=== PATIENT | female | born 1980 | race Caucasian/White ===

== ENCOUNTER 2017-01-02 07:04 | Outpatient (CLI) | payer BC | END 2017-01-02 08:47 | disposition home or self-care (01) | LOC: TRG 07:04 | PROVIDERS: ATTEND Obstetrics & Gynecology | DX: O47.1 False labor at or after 37 completed weeks of gestation (principal); Z3A.39 39 weeks gestation of pregnancy | CPT/HCPCS: 59025 ==

== ENCOUNTER 2017-01-05 08:28 | Outpatient (CLI) | payer BC ==
[2017-01-05 12:22] VITALS: BP 111/59
--- NOTE | 2017-01-05 12:30 | Ultrasound Report ---
ULTRASOUND BIOPHYSICAL PROFILE: History: Nonreactive stress test Technique: Transabdominal ultrasound with Doppler interrogation. 2 - breathing movements 2 - movements 2 - posture and tone 2 - Qualitative amniotic fluid volume 8 - TOTAL SCORE OF POSSIBLE 8 Heart Rate (bpm) 148
--- NOTE | 2017-01-05 12:31 | Ultrasound Report ---
ULTRASOUND OB LIMITED History: Nonreactive stress test Technique: Transabdominal ultrasound with Doppler interrogation. Gestation: Single Position: Cephalic Amniotic Fluid: Normal HIRAL = 13.6 cm Heart Rate: 148 BPM
== END 2017-01-05 12:55 | disposition home or self-care (01) ==
LOC: TRG 08:28
PROVIDERS: ATTEND Obstetrics & Gynecology
DX: O09.523 Supervision of elderly multigravida, third trimester (principal); Z3A.39 39 weeks gestation of pregnancy
CPT/HCPCS: 59025; 76815; 76819

== ENCOUNTER 2017-01-06 13:26 | Inpatient (IN) | payer BC ==
[2017-01-06] MEDS ORDERED: XYLOCAINE 2% INFILTRATI ONE (13:59)
[2017-01-06] MEDS ORDERED: MINERAL OIL PO PRN (13:59)
[2017-01-06] MEDS ORDERED: BRETHINE SUB-Q PRN (13:59)
[2017-01-06] MEDS ORDERED: ePHEDrine SULFATE IV PRN ×2 (13:59→18:11)
[2017-01-06] MEDS ORDERED: SUBLIMAZE IV PRN (13:59)
[2017-01-06] MEDS ORDERED: PITOCin/NS 20 UNIT/1000ML DRIP 20 UNITS/1,000 ML BAG IV SCH (14:00)
--- NOTE | 2017-01-06 14:40 | History and Physical Report ---
History of Present Illness Date of examination: 01/06/17 (pt presents with SROM/meconium; ctx) Date of admission: 01/06/17 13:26 History of present illness: Past History : 2 Term Births: 0 Premature Births: 0 Living Children: 0 Para: 0 Mult. Births: 0 Prev : 0 Prev. attempt? 0 Aborta: 1 Elect. Ab: 1 Spont. 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 of genital herpes: no Partner hx. of genital herpes: no Genetic History Congenital Heart Defect: Mom: yes Comments: nephew Eliana Disease: Mom: no Thalassemia Mom: no Neural Tube Defect Mom: no Down's Syndrome Mom: no Roland-Sachs Mom: no Sickle Cell Disease/Trait Mom: no Hemophilia Mom: no Muscular Dystrophy Mom: no Cystic Fibrosis Mom: no [place] Chorea Mom: no Mental Retardation Mom: no Fragile X Mom: no Other Genetic/Chromosomal Disorder Mom: no Child w/other defect Mom: no Enviromental Exposures Xray Exposure: no Medication, drug, or alcohol use since LMP: no Chemical/Other Exposure: no Exposure to Cat Liter: no Hx of Parvovirus (Fifth Disease): no Active Medications: None Current Allergies (reviewed today): No known allergies Laboratory Results Routine Urinalysis Leukocytes: negative Nitrite: negative Urobilinogen: negative Protein: Negative Blood: negative Ketone: negative Bilirubin: negative Glucose: Negative Urine HCG: positive Review of Systems General Complains of fatigue. Denies fever, chills, sweats, anorexia, weakness, malaise, weight loss and sleep disorder. Complains of pelvic pain. Denies vaginal discharge, incontinence, dysuria, hematuria, urinary frequency, amenorrhea, menorrhagia, abnormal vaginal bleeding, genital sores, decreased libido, painful periods, painful sex, urinary urgency, hot flashes, vaginal dryness, vaginal itching and vaginal odor. CV Denies chest pains, palpitations, syncope, dyspnea on exertion, orthopnea, PND and peripheral edema. Resp Denies cough, dyspnea at rest, excessive sputum, hemoptysis, wheezing and pleurisy. GI Complains of nausea. Denies vomiting, diarrhea, constipation, change in bowel habits, abdominal pain, melena, hematochezia, jaundice, gas/bloating, indigestion/heartburn, dysphagia and odynophagia. Breast Complains of breast pain. Denies left breast lump, right breast lump, nipple discharge, bloody discharge from nipple, abnormal mammogram and breast enlargement. Psych Denies depression, anxiety, irritability and mood swings. PHYSICAL EXAM HEENT: normocephalic, no lesions or deformities Neck/Thyroid: supple, thyroid normal Skin no significant abnormal lesions or rashes Chest: respiratory effort normal, clear to auscultation Breasts: skin/areolae normal, no masses, no nipple discharge, no erythema/warmth /tenderness, and axillae normal. 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 Vulva/Vagina: No lesions, normal BUS, normal rugae Cervix: No lesions; no cervical motion tenderness Uterus: unable to palapte due to obesity Adnexae: unable to palapte due to obesity Rectovaginal: exam defered Past History - Obstetrical History Expected Date of Delivery: 01/06/17 Actual Gestation: 40 Week(s) 0 Day(s) : 2 Para: 0 Induced : 1 Number of Living Children: 0 Medications and Allergies Allergies Allergy/AdvReac Type Severity Reaction Status Date / Time No Known Allergies Allergy Verified 01/05/17 10:15 Home Medications Medication Instructions Recorded Confirmed Last Taken Type No Known Home Medications [No 01/05/17 01/05/17 Unknown History Reported Home Medications] Active Meds: Active Medications Fentanyl (Sublimaze) 100 mcg IV Q2H PRN PRN Reason: Labor Pain Lactated Ringer's (Lactated Ringers) 1,000 mls @ 125 mls/hr IV DIRECT SHERIE Oxytocin/Sodium Chloride (Pitocin/Ns 20 Unit/1000ml Drip) 20 units in 1,000 mls @ 125 mls/hr IV DIRECT SHERIE Oxytocin/Sodium Chloride (Pitocin/Ns 30 Unit/500ml) 30 units in 500 mls @ 4 mls /hr IV TITR SHERIE PRN Reason: Protocol Mineral Oil (Mineral Oil) 30 ml PO QHS PRN PRN Reason: Constipation - Vital Signs Vital signs: Vital Signs Pulse Pulse Ox 91 H 98 01/06/17 14:16 01/06/17 14:16 Temp Pulse Resp BP Pulse Ox 91 H 99 01/06/17 14:31 01/06/17 14:31 - Physical Exam Breasts: Positive: deferred Cardiovascular: Regular rate, Normal S1, Normal S2 Lungs: Positive: Normal air movement Abdomen: Positive: normal appearance, soft, normal bowel sounds. Negative: distention, tenderness Vulva: both: normal Vagina: Positive: normal moisture. Negative: discharge Cervix: Negative: lesion, discharge Uterus: Positive: normal size, normal contour Adnexa: both: normal Anus/Rectum: Positive: normal perianal skin, heme negative. Negative: rectal mass, hemorrhoids Extremities: Positive: edema Deep Tendon Reflex Grade: Normal +2 - Obstetrical FHR: category 1 Uterine Contraction Monitor Mode: External Cervical Dilatation: 1 (thin meconium stained fluid ) Cervical Effacement Percentage: 30 station: -3 Uterine Contraction Pattern: Irregular Uterine Tone Measurement Phase: Resting Uterine Contraction Intensity: Mild Results All other labs normal. Laboratory Data-Patient Name: [facility] Test Date Result Blood Type 06/17/2016 O Rh 06/17/2016 Positive Antibody Screen negative Rubella 06/17/2016 Serology (RPR) 06/17/2016 negative HBsAg 06/17/2016 Negative Hemoglobin 10/13/2016 10.9 Hematocrit 10/13/2016 34.9 Platelets 06/17/2016 276 [id number] Chlamydia DNA GC DNA/Culture Urine Culture 06/17/2016 Final report Group B Strep cult negative PAP 05/10/2016 Normal, Satisfactory HIV 06/17/2016 AFP/Quad Screen Glucola Test 3hr GTT (Fasting) 1 hr 2 hr 3 hr [facility]-Patient Name:[facility] Test Date Result Varicella Ab Sickle Cell 06/17/2016 Negative PPD Fibronectin Cystic Fibrosis Parvovirus TSH Free T4 Hepatitis C ALT AST Uric Acid Creatinine 24 hr Urine Protein JOSE Assessment and Plan 36yo @ 40 weeks with SROM while enroute to hospital. Thin meconium noted @ time of exam. GBS negative. Orders in EMR. NICU notified of meconium.
[2017-01-06 15:03] LABS: Hematocrit 35.2 % (30.3-42.9); Hemoglobin 11.1 gm/dl (10.1-14.3); Mean Corpuscular HGB Conc 31 % (30-34); Mean Corpuscular Volume 76 fl (79-97); Platelet Count 252 K/mm3 (140-440); Red Blood Count 4.63 M/mm3 (3.65-5.03); Red Cell Distribution Width 16.6 % (13.2-15.2)
[2017-01-06] MEDS: LACTATED RINGERS 1,000 ML IV SCH ×3 (15:03→19:06)
[2017-01-06] MEDS: PITOCin/NS 30 UNIT/500ML 30 UNITS/500 ML BAG IV SCH ×3 (15:04→18:35)
[2017-01-06 15:19] LABS: White Blood Count 21.1 K/mm3 (4.5-11.0)
[2017-01-06 15:20] LABS: Mean Corpuscular Hemoglobin 24 pg (28-32)
[2017-01-06] MEDS ORDERED: ZOFRAN ONE (17:34)
[2017-01-06] MEDS ORDERED: ePHEDrine SULFATE ONE (17:34)
--- NOTE | 2017-01-06 17:44 | Progress Note ---
Assessment and Plan - Patient Problems (1) 40 weeks gestation of Current Visit: Yes Status: Acute (2) Active labor Current Visit: Yes Status: Acute (3) Spontaneous rupture of membranes Current Visit: Yes Status: Acute (4) Thin meconium stained amniotic fluid Current Visit: Yes Status: Acute Plan to address problem: -cont pitocin -pt sitting for epidural Subjective - Subjective Date of service: 01/06/17 Principal diagnosis: IUP at term SROM latent labor with 1+mec Interval history: Pt c/o having contractions and is sitting for epidural. Patient reports: loss of fluid, movement normal, contractions, no new complaints Objective - Vital Signs Vital Signs: Vital Signs - 12hr 01/06/17 01/06/17 01/06/17 14:16 14:21 14:26 Temperature Pulse Rate 91 H 95 H 94 H Pulse Rate [ From Monitor] Respiratory Rate Blood Pressure Blood Pressure [Left Arm] O2 Sat by Pulse 98 98 99 Oximetry 01/06/17 01/06/17 01/06/17 14:31 14:36 14:41 Temperature Pulse Rate 91 H 87 88 Pulse Rate [ From Monitor] Respiratory Rate Blood Pressure Blood Pressure [Left Arm] O2 Sat by Pulse 99 100 100 Oximetry 01/06/17 01/06/17 01/06/17 14:46 14:48 14:51 Temperature Pulse Rate 88 80 85 Pulse Rate [ From Monitor] Respiratory Rate Blood Pressure Blood Pressure [Left Arm] O2 Sat by Pulse 100 92 100 Oximetry 01/06/17 01/06/17 01/06/17 14:56 15:01 15:05 Temperature Pulse Rate 107 H 85 83 Pulse Rate [ From Monitor] Respiratory Rate Blood Pressure 106/56 Blood Pressure [Left Arm] O2 Sat by Pulse 100 100 Oximetry 01/06/17 01/06/17 01/06/17 15:06 15:11 15:16 Temperature 98.5 F Pulse Rate 79 82 81 Pulse Rate [ 84 From Monitor] Respiratory 18 Rate Blood Pressure Blood Pressure 106/56 [Left Arm] O2 Sat by Pulse 100 100 100 Oximetry 01/06/17 01/06/17 01/06/17 15:21 15:26 15:31 Temperature Pulse Rate 79 81 93 H Pulse Rate [ From Monitor] Respiratory Rate Blood Pressure 104/59 Blood Pressure [Left Arm] O2 Sat by Pulse 100 100 100 Oximetry 03/01/06/17 01/06/17 15:36 15:38 15:41 Temperature Pulse Rate 85 105 H 90 Pulse Rate [ From Monitor] Respiratory Rate Blood Pressure 133/80 Blood Pressure [Left Arm] O2 Sat by Pulse 100 100 Oximetry 01/06/17 01/06/17 01/06/17 15:46 15:51 15:52 Temperature Pulse Rate 85 89 81 Pulse Rate [ From Monitor] Respiratory Rate Blood Pressure 91/50 Blood Pressure [Left Arm] O2 Sat by Pulse 100 100 Oximetry 01/06/17 01/06/17 01/06/17 15:56 16:01 16:06 Temperature Pulse Rate 82 77 95 H Pulse Rate [ From Monitor] Respiratory Rate Blood Pressure 176/76 Blood Pressure [Left Arm] O2 Sat by Pulse 100 100 100 Oximetry 01/06/17 01/06/17 01/06/17 16:11 16:16 16:21 Temperature Pulse Rate 83 83 92 H Pulse Rate [ From Monitor] Respiratory Rate Blood Pressure Blood Pressure [Left Arm] O2 Sat by Pulse 100 100 100 Oximetry 01/06/17 01/06/17 01/06/17 16:22 16:26 16:31 Temperature Pulse Rate 83 87 81 Pulse Rate [ From Monitor] Respiratory Rate Blood Pressure 110/54 Blood Pressure [Left Arm] O2 Sat by Pulse 100 100 Oximetry 01/06/17 01/06/17 01/06/17 16:36 16:37 16:41 Temperature Pulse Rate 89 86 80 Pulse Rate [ From Monitor] Respiratory Rate Blood Pressure 154/57 Blood Pressure [Left Arm] O2 Sat by Pulse 100 92 100 Oximetry 01/06/17 01/06/17 01/06/17 16:46 16:51 16:56 Temperature Pulse Rate 75 92 H 91 H Pulse Rate [ From Monitor] Respiratory Rate Blood Pressure 138/60 Blood Pressure [Left Arm] O2 Sat by Pulse 100 100 100 Oximetry 01/06/17 01/06/17 01/06/17 17:01 17:06 17:08 Temperature Pulse Rate 82 85 65 Pulse Rate [ From Monitor] Respiratory Rate Blood Pressure Blood Pressure [Left Arm] O2 Sat by Pulse 100 100 80 L Oximetry 01/06/17 01/06/17 01/06/17 17:11 17:16 17:21 Temperature Pulse Rate 82 92 H 83 Pulse Rate [ From Monitor] Respiratory Rate Blood Pressure Blood Pressure [Left Arm] O2 Sat by Pulse 100 100 100 Oximetry 01/06/17 01/06/17 01/06/17 17:22 17:26 17:31 Temperature Pulse Rate 76 86 93 H Pulse Rate [ From Monitor] Respiratory Rate Blood Pressure 135/58 Blood Pressure [Left Arm] O2 Sat by Pulse 100 100 Oximetry - Exam FHR: category 2 Cervical Dilatation: 1.5 Cervical Effacement Percentage: 80 (forebag palpated on exam) station: -1 Uterine Contraction Pattern: Regular Uterine Tone Measurement Phase: Resting Uterine Contraction Intensity: Mild - Labs Labs: Abnormal Labs 01/06/17 14:48 WBC 21.1 H MCV 76 L MCH 24 L RDW 16.6 H Laboratory Results - last 24 hr 01/06/17 01/06/17 13:30 14:48 WBC 21.1 H RBC 4.63 Hgb 11.1 Hct 35.2 MCV 76 L MCH 24 L MCHC 31 RDW 16.6 H Plt Count 252 Blood Type O POSITIVE Antibody Screen Negative
[2017-01-06] MEDS ORDERED: NARCAN 2 MG/2 ML IV PRN (18:11)
--- NOTE | 2017-01-06 18:11 | Anesthesia Consultation ---
Anesthesia Consult and Med Hx Date of service: 01/06/17 - Airway Anesthetic Teeth Evaluation: Good ROM Head & Neck: Adequate Mental/Hyoid Distance: Adequate Mallampati Class: Class II Intubation Access Assessment: Good - Pulmonary Exam CTA: Yes - Cardiac Exam Cardiac Exam: No Murmur - Pre-Operative Health Status ASA Pre-Surgery Classification: ASA2 Proposed Anesthetic Plan: Epidural - Pulmonary Hx Asthma: No COPD: No Hx Pneumonia: No - Cardiovascular System Hx Hypertension: No - Central Nervous System Hx Seizures: No Hx Psychiatric Problems: No - Endocrine Hx Renal Disease: No Hx End Stage Renal Disease: No Hx Hypothyroidism: No Hx Hyperthyroidism: No - Hematic Hx Anemia: No Hx Sickle Cell Disease: No - Other Systems Hx Alcohol Use: No
[2017-01-06] MEDS ORDERED: fentaNYL-BUPIV 2 MCG/ML-0.125% 200 MCG/100 ML BAG EPIDURAL SCH (19:00)
--- NOTE | 2017-01-06 19:37 | Progress Note ---
Assessment and Plan - Patient Problems (1) 40 weeks gestation of Current Visit: Yes Status: Acute (2) Active labor Current Visit: Yes Status: Acute Plan to address problem: -latent labor at this time as pt is currently just 2cm -con't pitocin induction (3) Spontaneous rupture of membranes Current Visit: Yes Status: Acute Plan to address problem: -if shows s/sx of chroio, will start antibx -cont pitocin (4) Thin meconium stained amniotic fluid Current Visit: Yes Status: Acute Plan to address problem: -cont pitocin -closely monitor Subjective - Subjective Date of service: 01/06/17 Principal diagnosis: IUP at term SROM latent labor with 1+mec Interval history: Pt comfortable with epidural in place, IUPC and ISE placed w/o difficulty. light mec still noted. cx 2/80/-1 at this time. Pt advised of possible need for operative delivery for intolerance to labor, failure to progress, persistent tachycardia, chorio with no cervical change. Pt has signed c/s consent. Pt and expressed understanding and all questions were addressed and answered. Recent tachycardia appears to be related to ephedrine given for hypotension after the epidural was placed. Pt currently has baseline FHR in the 150s with good variability noted. Patient reports: loss of fluid, movement normal, contractions, no new complaints Objective - Vital Signs Vital Signs: Vital Signs - 12hr 01/06/17 01/06/17 01/06/17 14:16 14:21 14:26 Temperature Pulse Rate 91 H 95 H 94 H Pulse Rate [ From Monitor] Respiratory Rate Blood Pressure Blood Pressure [Left Arm] O2 Sat by Pulse 98 98 99 Oximetry 01/06/17 01/06/17 01/06/17 14:31 14:36 14:41 Temperature Pulse Rate 91 H 87 88 Pulse Rate [ From Monitor] Respiratory Rate Blood Pressure Blood Pressure [Left Arm] O2 Sat by Pulse 99 100 100 Oximetry 01/06/17 01/06/17 01/06/17 14:46 14:48 14:51 Temperature Pulse Rate 88 80 85 Pulse Rate [ From Monitor] Respiratory Rate Blood Pressure Blood Pressure [Left Arm] O2 Sat by Pulse 100 92 100 Oximetry 01/06/17 01/06/17 01/06/17 14:56 15:01 15:05 Temperature Pulse Rate 107 H 85 83 Pulse Rate [ From Monitor] Respiratory Rate Blood Pressure 106/56 Blood Pressure [Left Arm] O2 Sat by Pulse 100 100 Oximetry 01/06/17 01/06/17 01/06/17 15:06 15:11 15:16 Temperature 98.5 F Pulse Rate 79 82 81 Pulse Rate [ 84 From Monitor] Respiratory 18 Rate Blood Pressure Blood Pressure 106/56 [Left Arm] O2 Sat by Pulse 100 100 100 Oximetry 01/06/17 01/06/17 01/06/17 15:21 15:26 15:31 Temperature Pulse Rate 79 81 93 H Pulse Rate [ From Monitor] Respiratory Rate Blood Pressure 104/59 Blood Pressure [Left Arm] O2 Sat by Pulse 100 100 100 Oximetry 01/06/17 01/06/17 01/06/17 15:36 15:38 15:41 Temperature Pulse Rate 85 105 H 90 Pulse Rate [ From Monitor] Respiratory Rate Blood Pressure 133/80 Blood Pressure [Left Arm] O2 Sat by Pulse 100 100 Oximetry 01/06/17 01/06/17 01/06/17 15:46 15:51 15:52 Temperature Pulse Rate 85 89 81 Pulse Rate [ From Monitor] Respiratory Rate Blood Pressure 91/50 Blood Pressure [Left Arm] O2 Sat by Pulse 100 100 Oximetry 01/06/17 01/06/17 01/06/17 15:56 16:01 16:06 Temperature Pulse Rate 82 77 95 H Pulse Rate [ From Monitor] Respiratory Rate Blood Pressure 176/76 Blood Pressure [Left Arm] O2 Sat by Pulse 100 100 100 Oximetry 01/06/17 01/06/17 01/06/17 16:11 16:16 16:21 Temperature Pulse Rate 83 83 92 H Pulse Rate [ From Monitor] Respiratory Rate Blood Pressure Blood Pressure [Left Arm] O2 Sat by Pulse 100 100 100 Oximetry 01/06/17 01/06/17 01/06/17 16:22 16:26 16:31 Temperature Pulse Rate 83 87 81 Pulse Rate [ From Monitor] Respiratory Rate Blood Pressure 110/54 Blood Pressure [Left Arm] O2 Sat by Pulse 100 100 Oximetry 01/06/17 01/06/17 01/06/17 16:36 16:37 16:41 Temperature Pulse Rate 89 86 80 Pulse Rate [ From Monitor] Respiratory Rate Blood Pressure 154/57 Blood Pressure [Left Arm] O2 Sat by Pulse 100 92 100 Oximetry 01/06/17 01/06/1701/06/17 16:46 16:51 16:56 Temperature Pulse Rate 75 92 H 91 H Pulse Rate [ From Monitor] Respiratory Rate Blood Pressure 138/60 Blood Pressure [Left Arm] O2 Sat by Pulse 100 100 100 Oximetry 01/06/17 01/06/17 01/06/17 17:01 17:06 17:08 Temperature Pulse Rate 82 85 65 Pulse Rate [ From Monitor] Respiratory Rate Blood Pressure Blood Pressure [Left Arm] O2 Sat by Pulse 100 100 80 L Oximetry 01/06/17 01/06/17 01/06/17 17:11 17:16 17:21 Temperature Pulse Rate 82 92 H 83 Pulse Rate [ From Monitor] Respiratory Rate Blood Pressure Blood Pressure [Left Arm] O2 Sat by Pulse 100 100 100 Oximetry 01/06/17 01/06/17 01/06/17 17:22 17:26 17:31 Temperature Pulse Rate 76 86 93 H Pulse Rate [ From Monitor] Respiratory Rate Blood Pressure 135/58 Blood Pressure [Left Arm] O2 Sat by Pulse 100 100 Oximetry 01/06/17 01/06/17 01/06/17 17:41 17:43 17:45 Temperature Pulse Rate 98 H 100 H Pulse Rate [ From Monitor] Respiratory Rate Blood Pressure 133/69 Blood Pressure [Left Arm] O2 Sat by Pulse 100 94 Oximetry 01/06/17 01/06/17 01/06/17 17:46 17:47 17:48 Temperature Pulse Rate 101 H 90 92 H Pulse Rate [ From Monitor] Respiratory Rate Blood Pressure 106/58 107/59 Blood Pressure [Left Arm] O2 Sat by Pulse 100 Oximetry 01/06/17 01/06/17 01/06/17 17:50 17:51 17:52 Temperature Pulse Rate 89 91 H 82 Pulse Rate [ From Monitor] Respiratory Rate Blood Pressure 106/59 102/58 Blood Pressure 107/59 [Left Arm] O2 Sat by Pulse 100 Oximetry 01/06/17 01/06/17 01/06/17 17:54 17:56 17:58 Temperature Pulse Rate 91 H 85 83 Pulse Rate [ From Monitor] Respiratory Rate Blood Pressure 107/57 105/59 107/61 Blood Pressure [Left Arm] O2 Sat by Pulse 99 Oximetry 01/06/17 01/06/17 01/06/17 18:10 18:15 18:16 Temperature Pulse Rate 105 H 125 H 96 H Pulse Rate [ From Monitor] Respiratory Rate Blood Pressure 90/55 89/50 Blood Pressure [Left Arm] O2 Sat by Pulse 100 100 Oximetry 01/06/17 01/06/17 01/06/17 18:18 18:20 18:25 Temperature Pulse Rate 96 H 100 H 80 Pulse Rate [ From Monitor] Respiratory Rate Blood Pressure 87/51 90/52 Blood Pressure [Left Arm] O2 Sat by Pulse 97 100 Oximetry 01/06/17 01/06/17 01/06/17 18:27 18:30 18:31 Temperature Pulse Rate 87 85 84 Pulse Rate [ From Monitor] Respiratory Rate Blood Pressure 95/52 90/51 Blood Pressure [Left Arm] O2 Sat by Pulse 100 Oximetry 01/06/17 01/06/17 01/06/17 18:35 18:40 18:45 Temperature Pulse Rate 79 79 88 Pulse Rate [ From Monitor] Respiratory Rate Blood Pressure Blood Pressure [Left Arm] O2 Sat by Pulse 100 100 100 Oximetry 01/06/17 01/06/17 01/06/17 18:50 18:51 18:55 Temperature Pulse Rate 95 H 94 H 90 Pulse Rate [ From Monitor] Respiratory Rate Blood Pressure 97/55 Blood Pressure [Left Arm] O2 Sat by Pulse 100 100 Oximetry 01/06/17 01/06/17 01/06/17 19:00 19:05 19:07 Temperature 99.0 F Pulse Rate 83 82 Pulse Rate [ From Monitor] Respiratory 20 Rate Blood Pressure 104/58 Blood Pressure [Left Arm] O2 Sat by Pulse 100 100 Oximetry 01/06/17 01/06/17 01/06/17 19:10 19:15 19:20 Temperature Pulse Rate 86 98 H 95 H Pulse Rate [ From Monitor] Respiratory Rate Blood Pressure 101/53 Blood Pressure [Left Arm] O2 Sat by Pulse 100 100 100 Oximetry 01/06/17 19:24 Temperature Pulse Rate 85 Pulse Rate [ From Monitor] Respiratory Rate Blood Pressure Blood Pressure [Left Arm] O2 Sat by Pulse 100 Oximetry - Exam FHR: category 2 Cervical Dilatation: 2 Cervical Effacement Percentage: 80 station: -1 Uterine Contraction Pattern: Regular Uterine Tone Measurement Phase: Resting Uterine Contraction Intensity: Moderate - Labs Labs: Abnormal Labs 01/06/17 14:48 WBC 21.1 H MCV 76 L MCH 24 L RDW 16.6 H Laboratory Results - last 24 hr 01/06/17 01/06/17 13:30 14:48 WBC 21.1 H RBC 4.63 Hgb 11.1 Hct 35.2 MCV 76 L MCH 24 L MCHC 31 RDW 16.6 H Plt Count 252 Blood Type O POSITIVE Antibody Screen Negative
[2017-01-06] MEDS ORDERED: ANCEF/STERILE WATER 2 GM/20 ML 2 GM/20 ML SYRINGE IV ONE (19:54)
[2017-01-06] MEDS ORDERED: REGLAN ONE (19:54)
[2017-01-06] MEDS ORDERED: PEPCID IV ONE ×2 (19:54→22:01)
[2017-01-06] MEDS ORDERED: BICITRA ONE (19:54)
--- NOTE | 2017-01-06 20:05 | Event Note ---
Date: 01/06/17 Called by nursing due to pt having repetitive late decels. Will proceed to OR for primary section due to nonreassuring tracing remote from delivery. Consent have already been signed and placed on the chart.
[2017-01-06] MEDS ORDERED: NACL 0.9% IR ONE (20:25)
[2017-01-06] MEDS ORDERED: WATER FOR IRRIG STERILE IR ONE (20:25)
[2017-01-06] MEDS ORDERED: TORADOL ONE (20:30)
[2017-01-06] MEDS ORDERED: NEO SYNEPHRINE ONE (20:30)
[2017-01-06] MEDS ORDERED: XYLOCAINE MPF 2% ONE ×4 (20:30)
[2017-01-06] MEDS ORDERED: MORPHINE ONE ×2 (20:31→20:32)
[2017-01-06] MEDS ORDERED: METHERGINE IM ONE ×2 (20:41→22:02)
[2017-01-06] MEDS ORDERED: NACL P/F VIAL (10 ML) 10 ML ONE (20:47)
[2017-01-06] MEDS ORDERED: MILK OF MAGNESIA PO PRN (21:18)
[2017-01-06] MEDS ORDERED: TORADOL IV PRN (21:18)
[2017-01-06] MEDS ORDERED: TUCKS PAD TP PRN (21:18)
[2017-01-06] MEDS ORDERED: NARCAN 0.4 MG/1 ML IV PRN (21:18)
[2017-01-06] MEDS ORDERED: LANSINOH TP PRN (21:18)
[2017-01-06] MEDS ORDERED: MYLICON PO PRN (21:18)
[2017-01-06] MEDS ORDERED: ZOFRAN IV PRN (21:18)
--- NOTE | 2017-01-06 21:30 | Post Anesthesia Evaluation ---
- Post Anesthesia Evaluation Patient Participated: Yes Airway Patent: Yes Stable Respiratory Function: Yes Nausea/Vomiting: No Temp > 96.8F: Yes Pain Manageable: Yes Adequeate Hydration: Yes Anesthesia Complications: No
--- NOTE | 2017-01-06 21:59 | Operative Report ---
Operative Report Operative Report: Date of procedure: 01/06/2017 Pre-operative diagnosis: 40 weeks gestation Obesity 1+ meconium tachycardia intolerance to labor Post-operative diagnosis: Same Procedure name(s): Primary low transverse section via Pfannenstiel skin incision Surgeon: Dr. 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 3 oz. Apgars of 8 and 9 at one and 5 minutes Light meconium-stained amniotic fluid Grossly normal fallopian tubes and ovaries bilaterally. Normal uterus Indications: Patient presented to Hospital with rupture of membranes. Patient was noted to have 1+ meconium. Patient was started on Pitocin induction of labor was noted to have repetitive decelerations with increasing the Pitocin. Patient was also noted to have episodes of tachycardia. Procedure: Patient was taking to the operating room. Patient was then prepped and draped in sterile fashion after anesthesia was found to be adequate. A low transverse skin incision was made with the scalpel and carried down to the underlying layer of fascia with the Bovie. The fascia was then incised in the midline and this incision was extended bilaterally with the Bovie. The superior aspect of the fascia was grasped with Joslyn clamps tented upward and dissected off of the anterior rectus muscles with the scalpel. In similar fashion the inferior aspect of the fascia was grasped with Joslyn clamps tented upward and dissected off of the anterior rectus muscles. The rectus muscles were then bluntly divided in the midline. The peritoneum was identified and entered into sharply. The Lauri retractor was placed The bladder blade was placed. The bladder flap was created using the Metzenbaum scissors. The bladder blade was replaced. A lower transverse uterine incision was made with the scalpel and extended bilaterally with the bandage scissors. Treat into the uterus yielded light meconium-stained fluid. The infant's head was then delivered atraumatically. The anterior shoulder and rest of infant delivered without difficulty. The umbilical cord was clamped x2. The cord was cut. The was then placed in sterile bassinet. The cord blood was collected The placenta was manually extracted in its entirety. The uterus was exteriorized and cleared of all clots and debris. The uterine incision was closed using 0 Vicryl in a running locking fashion. A second imbricating layer of the same suture was then created. The posterior cul-de-sac was copiously irrigated. The uterus was returned to the abdomen. The gutters were also irrigated. The anterior rectus muscles were reapproximated using 3-0 Vicryl. The anterior rectus fascia was reapproximated using 0 Vicryl in a running fashion. The subcuticular fat was reapproximated using 2-0 Vicryl in a running fashion. The skin was reapproximated with 4-0 Monocryl with a subcutaneous stitch. The patient tolerated the procedure well. Sponge lap and needle counts were all correct x3. Patient was taken to the recovery room awake and in stable condition.
[2017-01-06] MEDS ORDERED: SODIUM CHLORIDE FLUSH SYRINGE 10 ML IV NR (22:00)
[2017-01-06] MEDS ORDERED: REGLAN IV ONE (22:01)
[2017-01-06] MEDS ORDERED: BICITRA PO ONE (22:01)
[2017-01-06] MEDS ORDERED: DILAUDID IV PRN (22:02)
[2017-01-06] MEDS ORDERED: DEMEROL IV PRN (22:22)
[2017-01-06] MEDS ORDERED: ANCEF/STERILE WATER 2 GM/20 ML 2 GM/20 ML SYRINGE IV NR (23:00)
[2017-01-07] MEDS: ANCEF/NS 1 GM/50 ML 1 GM/50 ML BAG IV SCH ×3 (03:49→20:44)
[2017-01-07] MEDS ORDERED: BOOSTRIX IM ONE (06:00)
[2017-01-07] MEDS: D5LR 1,000 ML IV SCH ×3 (06:05→23:27)
--- NOTE | 2017-01-07 08:02 | Progress Note ---
Assessment and Plan patient doing well <12h post op. Smith to come out this AM. Encouraged ambulation and hydration today as tolerated. Will advance diet with flatus. VSSAF. Lochia scant. Dressing dry, to be removed by RN. Patient needs assistance with , to see. - Patient Problems (1) delivery delivered Current Visit: Yes Status: Acute Subjective - Subjective Date of service: 01/07/17 Principal diagnosis: postop day #1 s/p primary c/s Patient reports: appetite normal, pain well controlled : doing well (patient needs to assist with ) Objective - Vital Signs Latest vital signs: Vital Signs Temp Pulse Pulse Resp BP BP BP 01/07/17 03:25 99.9 F H 106 H 20 101/62 01/07/17 02:52 20 01/06/17 22:55 98.6 F 100 H 20 102/72 01/06/17 22:32 22 01/06/17 22:25 98.3 F 86 14 103/69 01/06/17 22:10 91 H 23 105/59 01/06/17 21:55 71 19 101/61 01/06/17 21:40 71 19 105/62 01/06/17 21:35 71 16 103/59 01/06/17 21:30 72 18 99/59 01/06/17 21:25 98.8 F 73 12 104/56 01/06/17 20:02 95 H 01/06/17 19:57 93 H 01/06/17 19:52 77 01/06/17 19:50 75 83/51 01/06/17 19:47 98 H 01/06/17 19:42 84 01/06/17 19:35 85 01/06/17 19:34 84 92/50 01/06/17 19:30 88 01/06/17 19:24 85 01/06/17 19:20 95 H 101/53 01/06/17 19:15 98 H 01/06/17 19:10 86 01/06/17 19:07 99.0 F 20 01/06/17 19:05 82 104/58 01/06/17 19:00 83 01/06/17 18:55 90 01/06/17 18:51 94 H 97/55 01/06/17 18:50 95 H 01/06/17 18:45 88 01/06/17 18:40 79 01/06/17 18:35 79 01/06/17 18:31 84 90/51 01/06/17 18:30 85 01/06/17 18:27 87 95/52 01/06/17 18:25 80 01/06/17 18:20 100 H 90/52 01/06/17 18:18 96 H 87/51 01/06/17 18:16 96 H 89/50 01/06/17 18:15 125 H 01/06/17 18:10 105 H 90/55 01/06/17 17:58 83 107/61 01/06/17 17:56 85 105/59 01/06/17 17:54 91 H 107/57 01/06/17 17:52 82 102/58 01/06/17 17:51 91 H 107/59 01/06/17 17:50 89 106/59 01/06/17 17:48 92 H 107/59 01/06/17 17:47 90 106/58 01/06/17 17:46 101 H 01/06/17 17:45 01/06/17 17:43 100 H 133/69 01/06/17 17:41 98 H 01/06/17 17:31 93 H 01/06/17 17:26 86 01/06/17 17:22 76 135/58 01/06/17 17:21 83 01/06/17 17:16 92 H 01/06/17 17:11 82 01/06/17 17:08 65 01/06/17 17:06 85 01/06/17 17:01 82 01/06/17 16:56 91 H 01/06/17 16:51 92 H 138/60 01/06/17 16:46 75 01/06/17 16:41 80 01/06/17 16:37 86 154/57 01/06/17 16:36 89 01/06/17 16:31 81 01/06/17 16:26 87 01/06/17 16:22 83 110/54 01/06/17 16:21 92 H 01/06/17 16:16 83 01/06/17 16:11 83 01/06/17 16:06 95 H 176/76 01/06/17 16:01 77 01/06/17 15:56 82 01/06/17 15:52 81 91/50 01/06/17 15:51 89 01/06/17 15:46 85 01/06/17 15:41 90 01/06/17 15:38 105 H 133/80 01/06/17 15:36 85 01/06/17 15:31 93 H 01/06/17 15:26 81 01/06/17 15:21 79 104/59 01/06/17 15:16 81 01/06/17 15:11 82 01/06/17 15:06 98.5 F 79 84 18 106/56 01/06/17 15:05 83 106/56 01/06/17 15:01 85 01/06/17 14:56 107 H 01/06/17 14:51 85 01/06/17 14:48 80 01/06/17 14:46 88 01/06/17 14:41 88 01/06/17 14:36 87 01/06/17 14:31 91 H 01/06/17 14:26 94 H 01/06/17 14:21 95 H 01/06/17 14:16 91 H Pulse Ox 01/07/17 03:25 01/07/17 02:52 01/06/17 22:55 01/06/17 22:32 01/06/17 22:25 98 01/06/17 22:10 99 01/06/17 21:55 98 01/06/17 21:40 98 01/06/17 21:35 98 01/06/17 21:30 98 01/06/17 21:25 98 01/06/17 20:02 100 01/06/17 19:57 100 01/06/17 19:52 100 01/06/17 19:50 01/06/17 19:47 95 01/06/17 19:42 99 01/06/17 19:35 100 01/06/17 19:34 01/06/17 19:30 100 01/06/17 19:24 100 01/06/17 19:20 100 01/06/17 19:15 100 01/06/17 19:10 100 01/06/17 19:07 01/06/17 19:05 100 01/06/17 19:00 100 01/06/17 18:55 100 01/06/17 18:51 01/06/17 18:50 100 17 18:45 100 17 18:40 100 17 18:35 100 17 18:31 17 18:30 100 17 18:27 17 18:25 100 01/06/17 18:20 97 01/06/17 18:18 01/06/17 18:16 01/06/17 18:15 100 01/06/17 18:10 100 01/06/17 17:58 01/06/17 17:56 99 01/06/17 17:54 01/06/17 17:52 01/06/17 17:51 100 01/06/17 17:50 01/06/17 17:48 01/06/17 17:47 01/06/17 17:46 100 01/06/17 17:45 94 01/06/17 17:43 01/06/17 17:41 100 01/06/17 17:31 100 01/06/17 17:26 100 01/06/17 17:22 01/06/17 17:21 100 01/06/17 17:16 100 01/06/17 17:11 100 01/06/17 17:08 80 L 01/06/17 17:06 100 01/06/17 17:01 100 01/06/17 16:56 100 17 16:51 100 17 16:46 100 17 16:41 100 17 16:37 92 17 16:36 100 17 16:31 100 17 16:26 100 17 16:22 17 16:21 100 17 16:16 100 17 16:11 100 17 16:06 100 17 16:01 100 17 15:56 100 17 15:52 17 15:51 100 17 15:46 100 17 15:41 100 17 15:38 17 15:36 100 17 15:31 100 17 15:26 100 01/06/17 15:21 100 01/06/17 15:16 100 01/06/17 15:11 100 01/06/17 15:06 100 01/06/17 15:05 01/06/17 15:01 100 01/06/17 14:56 100 01/06/17 14:51 100 01/06/17 14:48 92 01/06/17 14:46 100 01/06/17 14:41 100 01/06/17 14:36 100 01/06/17 14:31 99 01/06/17 14:26 99 01/06/17 14:21 98 01/06/17 14:16 98 Intake and Output 01/06/17 01/07/17 01/07/17 22:59 06:59 14:59 Intake Total 3450 415 Output Total 500 Balance 2950 415 Intake: IV 3450 175 ANCEF/NS 1 GM/50 ML 1 gm 50 In 50 ml @ 100 mls/hr IV Q8H SHERIE Rx#:[id number] Lactated Ringers 1,000 ml 2000 @ 125 mls/hr IV DIRECT SHERIE Rx#:[id number] PITOCin/NS 20 UNIT/1000ML 125 DRIP 20 units In 1,000 ml @ 125 mls/hr IV DIRECT SHERIE Rx#:[id number] Intake, Free Water 240 Output: Urine 500 Indwelling Catheter 150 Other: Total, Output Amount 150 # Voids Indwelling Catheter 300 Estimated Blood Loss 800 - Exam Breasts: Present: normal Cardiovascular: Present: Regular rate Lungs: Present: Clear to auscultation, Normal air movement Abdomen: Present: normal appearance, soft Uterus: Present: normal, firm, fundal height at umbilicus Extremities: Present: normal Incision: Present: normal, dry, dressed - Labs Labs: Abnormal lab results 01/06/17 Range/Units 14:48 WBC 21.1 H (4.5-11.0) K/mm3 MCV 76 L (79-97) fl MCH 24 L (28-32) pg RDW 16.6 H (13.2-15.2) %
--- NOTE | 2017-01-07 09:29 | Progress Note ---
Subjective Date of service: 01/07/17 Principal diagnosis: postop day #1 s/p primary c/s Interval history: 1st POD after Patient is in the bed, comfortable. Pain is controlled with pain meds. No residual neurological deficit. No anesthesia complications Objective - Constitutional Vitals: Vital Signs - 12hr 01/06/17 01/06/17 01/06/17 21:30 21:35 21:40 Temperature Pulse Rate 72 71 71 Pulse Rate [ From Monitor] Respiratory 18 16 19 Rate Blood Pressure 99/59 103/59 105/62 Blood Pressure [Right Arm] O2 Sat by Pulse 98 98 98 Oximetry 01/06/17 01/06/17 01/06/17 21:55 22:10 22:25 Temperature 98.3 F Pulse Rate 71 91 H 86 Pulse Rate [ From Monitor] Respiratory 19 23 14 Rate Blood Pressure 101/61 105/59 103/69 Blood Pressure [Right Arm] O2 Sat by Pulse 98 99 98 Oximetry 01/06/17 01/06/17 01/07/17 22:32 22:55 02:52 Temperature 98.6 F Pulse Rate Pulse Rate [ 100 H From Monitor] Respiratory 22 20 20 Rate Blood Pressure Blood Pressure 102/72 [Right Arm] O2 Sat by Pulse Oximetry 01/07/17 03:25 Temperature 99.9 F H Pulse Rate Pulse Rate [ 106 H From Monitor] Respiratory 20 Rate Blood Pressure Blood Pressure 101/62 [Right Arm] O2 Sat by Pulse Oximetry - Labs CBC & Chem 7: 01/06/17 14:48 Labs: Abnormal lab results 01/06/17 Range/Units 14:48 WBC 21.1 H (4.5-11.0) K/mm3 MCV 76 L (79-97) fl MCH 24 L (28-32) pg RDW 16.6 H (13.2-15.2) %
[2017-01-07 09:59] LABS: Hematocrit 29.5 % (30.3-42.9); Hemoglobin 9.3 gm/dl (10.1-14.3)
[2017-01-07] MEDS: NORCO 5/325 PO PRN (17:25)
--- NOTE | 2017-01-07 17:46 | Event Note ---
Date: 01/07/17 (fever) Received call from Nara RAINEY that patient temp is 102.[address] lee, Plan: BC x 2, tylenol, continue IV ancef, encourage hydration, use of ISS and ambulation.
[2017-01-07 18:14] LABS: Basophils % (Auto) 0.2 % (0.0-1.8); Hemoglobin 9.3 gm/dl (10.1-14.3); Mean Corpuscular HGB Conc 31 % (30-34); Mean Corpuscular Volume 77 fl (79-97); Platelet Count 173 K/mm3 (140-440); Red Blood Count 3.89 M/mm3 (3.65-5.03); Red Cell Distribution Width 17.3 % (13.2-15.2)
[2017-01-07 18:25] LABS: Mean Corpuscular Hemoglobin 24 pg (28-32)
[2017-01-07] MEDS: MOTRIN PO PRN (20:45)
[2017-01-08] MEDS: ANCEF/NS 1 GM/50 ML 1 GM/50 ML BAG IV SCH ×3 (04:54→22:09)
[2017-01-08] MEDS: MOTRIN PO PRN ×2 (05:53→20:25)
[2017-01-08] MEDS ORDERED: BOOSTRIX IM ONE (06:00)
[2017-01-08] MEDS: NORCO 5/325 PO PRN ×3 (08:23→23:28)
[2017-01-08] MEDS: D5LR 1,000 ML IV SCH ×2 (08:23→21:12)
--- NOTE | 2017-01-08 11:23 | Progress Note ---
Assessment and Plan - Patient Problems (1) Febrile Current Visit: Yes Status: Acute Qualifiers: Fever type: fever during puerperium Encounter type: E Qualified Code(s): O86.4 - Pyrexia of unknown origin following delivery Plan to address problem: -will con't antibx -blood cx pending -WBC decreased was elevated on admission -d/c home when afebrile 24 to 48 hours -if spikes again will change to amp/gent/clinda -cxr ordered to r/o pulmonary source. exam is negative for s/sx of resp infection -last temp was 01/07 @ 1834pm (2) delivery delivered Current Visit: Yes Status: Acute Plan to address problem: -incision w/o any s/sx of infection. Uterus w/o tenderness -con't routine pp/post op care -d/c home when afebrile 24 to 48 hrs Subjective - Subjective Date of service: 01/08/17 Principal diagnosis: postop day #2 s/p primary c/s; febrile morbidity Interval history: Pt doing well this am stating she feels much better. I d/w doing chest xray to r /o pulmonary source as reason for fevers. She does not have any respiratory c/o at this time. She also does not have s/sx of infection of wound or endomymetritis. I d/w pt continuing antibx, awaiting cx results, and obtaining chest x ray. All questions were addressed and answered. Patient reports: appetite normal, voiding normally, pain well controlled, ambulating normally, no dizzy ambulation [place]: doing well, nursing well Objective - Vital Signs Latest vital signs: Vital Signs Temp Pulse Resp BP 01/08/17 06:19 99.3 F 01/08/17 04:25 97.7 F 01/07/17 23:45 98.9 F 18 97/64 01/07/17 19:30 99.0 F 01/07/17 18:34 102.2 F H 01/07/17 17:25 20 01/07/17 16:55 102.9 F H 112 H 22 111/60 01/07/17 12:20 99.7 F H 123 H 22 94/52 Intake and Output 01/07/17 01/08/17 01/08/17 22:59 06:59 14:59 Intake Total 1553 912 8562 Output Total 900 Balance 779 136 0467 Intake: IV 1100 1000 ANCEF/NS 1 GM/50 ML 1 gm 100 In 50 ml @ 100 mls/hr IV Q8H [facility] Rx#:[id number] ANCEF/STERILE WATER 2 GM/ 0 20 ML 2 gm In 20 ml @ 80 mls/hr IV PREOP NR Rx#: [id number] D5lr 1,000 ml @ 125 mls/ 1000 1000 hr IV DIRECT SHERIE Rx#: [id number] Oral 600 240 Output: Urine 900 Void 900 Other: Total, Intake Amount 120 120 Total, Output Amount 900 # Voids Void 1 1 - Exam Breasts: Present: normal Cardiovascular: Present: Normal S1 Lungs: Present: Clear to auscultation, Normal air movement Abdomen: Present: normal appearance, soft, normal bowel sounds. Absent: distention, tenderness, guarding Extremities: Present: normal, edema (trace b/l). Absent: tenderness Deep Tendon Reflex Grade: Normal +2 Incision: Present: normal, dry, intact (open to air. steristrips in place with dried blood noted) - Labs Labs: Abnormal lab results 01/07/17 Range/Units 17:49 WBC 13.0 H (4.5-11.0) K/mm3 Hgb 9.3 L (10.1-14.3) gm/dl Hct 30.0 L (30.3-42.9) % MCV 77 L (79-97) fl MCH 24 L (28-32) pg RDW 17.3 H (13.2-15.2) % Lymph % (Auto) 6.8 L (13.4-35.0) % Lymph # 0.9 L (1.2-5.4) K/mm3 Seg Neutrophils % 87.7 H (40.0-70.0) % Seg Neutrophils # 11.4 H (1.8-7.7) K/mm3
--- NOTE | 2017-01-08 12:27 | XRay Report ---
Chest 2 views: History: Fever. Findings: Normal cardiomediastinal silhouette. Trachea is midline. No consolidation, pneumothorax or pleural effusion. Impression: No acute cardiopulmonary findings.
--- NOTE | 2017-01-08 13:24 | Event Note ---
Date: 01/08/17 CXR shows not acute findings.
--- NOTE | 2017-01-08 22:31 | Event Note ---
Date: 01/08/17 Called by RN with pt having temp of 100.2 about an hour ago. I d/w RN that triples would be started at this time. Final Blood cx still pending but no growth after 24hrs. CXR negative. Will also obtain urine cx at this time.
[2017-01-08] MEDS: POLYCILLIN/NS 2 GM/100 ML 2 GM/100 ML BAG IV SCH (23:28)
[2017-01-09] MEDS ORDERED: POLYCILLIN/NS 1 GM/50 ML 1 GM/50 ML BAG IV SCH
[2017-01-09] MEDS ORDERED: POLYCILLIN IV SCH
[2017-01-09] MEDS: NACL 0.9% IV SCH (02:22)
[2017-01-09] MEDS: GARAMYCIN IV SCH (02:22)
[2017-01-09] MEDS: CLEOCIN 900 MG/50 mL 900 MG/50 ML BAG IV SCH ×3 (03:00→21:00)
[2017-01-09] MEDS: NORCO 5/325 PO PRN ×3 (03:33→23:15)
[2017-01-09] MEDS: MOTRIN PO PRN ×3 (03:34→23:15)
[2017-01-09] MEDS: POLYCILLIN/NS 2 GM/100 ML 2 GM/100 ML BAG IV SCH ×3 (05:59→18:38)
--- NOTE | 2017-01-09 10:23 | Progress Note ---
Assessment and Plan - Patient Problems (1) Febrile Current Visit: Yes Status: Acute Qualifiers: Fever type: fever during puerperium Encounter type: E Qualified Code(s): O86.4 - Pyrexia of unknown origin following delivery Plan to address problem: -tripples started -all cx negative thus far -cxr negative -d/c when afebrile 24-48hours (2) delivery delivered Current Visit: Yes Status: Acute Plan to address problem: -incision w/o any s/sx of infection. Uterus w/o tenderness -con't routine pp/post op care -d/c home when afebrile 24 to 48 hrs Subjective - Subjective Date of service: 01/09/17 Principal diagnosis: postop day #3 s/p primary c/s; febrile morbidity Interval history: Pt states she is feeling much better today. She had one low grade temp in 24 hrs. Will con't tripples for now and if remains afebrile 24-48hrs will d/c home. Several questions were addressed at bedside today. Patient reports: appetite normal, voiding normally, pain well controlled, flatus , no dizzy ambulation [place]: doing well, nursing well Objective - Vital Signs Latest vital signs: Vital Signs Temp Pulse Resp BP 01/09/17 08:01 98.2 F 85 18 103/60 01/09/17 04:17 99.1 F 01/08/17 23:35 97.7 F 96 H 20 103/68 01/08/17 20:30 100.2 F H 01/08/17 16:30 98.3 F 72 20 97/80 Intake and Output 01/08/17 01/09/17 01/09/17 22:59 06:59 14:59 Intake Total 1650 460 Balance 1650 460 Intake: IV 1050 100 ANCEF/NS 1 GM/50 ML 1 gm 50 In 50 ml @ 100 mls/hr IV Q8H [facility] Rx#:[id number] D5lr 1,000 ml @ 125 mls/ 1000 hr IV DIRECT SHERIE Rx#: [id number] POLYCILLIN/NS 2 GM/100 ML 100 2 gm In 100 ml @ 200 mls /hr IV Q6HR SHERIE Rx#: [id number] Oral 600 360 Other: Total, Intake Amount 120 240 # Voids Void 1 1 Weight 99.9 kg - Exam Breasts: Present: normal Cardiovascular: Present: Normal S1, Normal S2 Lungs: Present: Clear to auscultation, Normal air movement Abdomen: Present: normal appearance, soft, normal bowel sounds. Absent: distention, tenderness, guarding Uterus: Present: normal, firm, fundal height below umbilicus. Absent: bogginess , tenderness Deep Tendon Reflex Grade: Normal +2 Incision: Present: normal, dry, intact
[2017-01-10] MEDS: GARAMYCIN IV SCH (02:30)
[2017-01-10] MEDS: NACL 0.9% IV SCH (02:30)
[2017-01-10] MEDS: CLEOCIN 900 MG/50 mL 900 MG/50 ML BAG IV SCH (04:50)
[2017-01-10] MEDS: POLYCILLIN/NS 2 GM/100 ML 2 GM/100 ML BAG IV SCH ×2 (06:00)
--- NOTE | 2017-01-10 06:15 | Discharge Summary ---
Providers - Providers Date of Admission: 01/06/17 13:26 Date of discharge: 01/10/17 (pt requesting to go home; will d/c if OK with MD) Attending physician: IRENE AMES Primary care physician: POLY GAINES Hospitalization Reason for admission: rupture of membranes Delivery: Procedure: primary low transverse Episiotomy: none Laceration: none Incision: dry, intact Other procedures: none complications: none Discharge diagnosis: IUP at term delivered baby: female Hospital course: uncomplicated section Pt asking to be discharged. Pt had been febrile Last temp above 100.0 was @ 1830. Now afebrile VSS FF Lochia scant Incision D&I H&H 9.3.0 drop r/t blood loss from surgery. Doing well s/p c/s P: d/c today after consult with . RX provided. RTO Condition at discharge: Good Disposition: DISCHARGED TO HOME OR SELFCARE - Discharge Diagnoses (1) delivery delivered Status: Acute Comment: RTO Plan - Discharge Medications Prescriptions: Docusate Sodium [Colace] 100 mg PO BID PRN #60 capsule PRN Reason: Constipation Ibuprofen [Motrin 800 MG tab] 800 mg PO Q8HR PRN #30 tablet PRN Reason: Pain oxyCODONE /ACETAMINOPHEN [Percocet 5/325] 1 tab PO Q4HR #30 tab - Provider Discharge Summary Activity: routine, no sex for 6 weeks, no heavy lifting 4 weeks, no strenuous exercise Diet: routine Instructions: routine Additional instructions: [] Smoking cessation referral if applicable(refer to patient education folder for contact #) [] Refer to [facility] Booklet Call your doctor immediately for: * Fever > 100.5 * Heavy vaginal bleeding ( >1 pad per hour) * Severe persistent headache * Shortness of breath * Reddened, hot, painful area to leg or breast * Drainage or odor from incision. * Keep incision clean and dry at all times and follow doctor's instructions regarding bathing/showering - Follow up plan Follow up: POLY GAINES MD [Primary Care Provider] - 01/13/17 (Congratulations! Please call [phone] to schedule your postoperative visit on . Please take medications as prescribed. Call with any concerns. )
[2017-01-10] MEDS: MOTRIN PO PRN (08:22)
[2017-01-10 11:45] VITALS: BP 116/70
== END 2017-01-10 12:30 | disposition home or self-care (01) | DRG 765 ==
LOC: LD 13:26 → OB 22:44
PROVIDERS: ADMIT Obstetrics & Gynecology; ATTEND Obstetrics & Gynecology
PROC: 10D00Z1 Extraction of Products of Conception, Low, Open Approach (ICD-10-PCS; principal; 2017-01-06)
DX: O42.02 Full-term premature rupture of membranes, onset of labor within 24 hours of rupture (principal); O86.4 Pyrexia of unknown origin following delivery; O76 Abnormality in fetal heart rate and rhythm complicating labor and delivery; O77.0 Labor and delivery complicated by meconium in amniotic fluid; O99.214 Obesity complicating childbirth; E66.9 Obesity, unspecified; Z68.36 Body mass index [BMI] 36.0-36.9, adult; Z3A.40 40 weeks gestation of pregnancy; Z37.0 Single live birth
CPT/HCPCS: 36415; 71020; 85014; 85018; 85025; 85027; 86850; 86900; 86901; 87040; 87086; 88307; 90471; 90715; J0290; J0690; J1170; J1580; J1885; J2175; J2210; J2270; J2370; J2405; J2590; J2765; J3010; J7120; J7121